=== PATIENT | female | born 1975 | race African-American/Black ===

== ENCOUNTER 2019-06-17 11:04 | Outpatient (CLI) | payer OTHER ==
[~2019-06-17 11:04] MED LIST: DICL1GEL2 TOP; HYDR25TA60 PO; LISI10TA11 PO
== END 2019-06-17 23:30 | disposition home or self-care (01) ==
LOC: MAMMO 11:04
DX: Z12.31 Encounter for screening mammogram for malignant neoplasm of breast (principal)

== ENCOUNTER 2020-02-04 09:26 | Emergency (ER) | payer OTHER ==
[~2020-02-04] VITALS: Ht 157.5 cm; Wt 90.7 kg
[2020-02-04 10:30] LABS: PLATELET COUNT 217 K/uL (152-353)
[2020-02-04 10:42] LABS: POTASSIUM 3.5 mmol/L (3.6-5.2)
[2020-02-04 11:31] VITALS: BP 126/68; TEMP 99.5
== END 2020-02-04 11:28 | disposition home or self-care (01) ==
LOC: ED 09:26
DX: J20.9 Acute bronchitis, unspecified (principal); U07.1 COVID-19
CPT/HCPCS: 36415; 80053; 83605; 83880; 85027; 87040; 87635; 96374; 99284; J2930; U0002

== ENCOUNTER 2021-11-08 12:09 | Outpatient (CLI) | payer OTHER ==
[2021-11-08 12:31] LABS: PLATELET COUNT 252 K/uL (152-353)
[2021-11-08 12:58] LABS: POTASSIUM 3.8 mmol/L (3.6-5.2)
== END 2021-11-08 19:03 | disposition home or self-care (01) ==
LOC: LABW 12:09
PROVIDERS: ATTEND Internal Medicine
DX: I10 Essential (primary) hypertension (principal); H53.8 Other visual disturbances; M19.90 Unspecified osteoarthritis, unspecified site; Z79.899 Other long term (current) drug therapy
CPT/HCPCS: 36415; 80053; 80061; 81000; 83036; 84439; 84443; 84550; 85027

== ENCOUNTER 2022-07-31 13:21 | Outpatient (CLI) | payer OTHER | END 2022-07-31 19:39 | disposition home or self-care (01) | LOC: RAD 13:21 | PROVIDERS: ATTEND Internal Medicine | DX: R76.12 Nonspecific reaction to cell mediated immunity measurement of gamma interferon antigen response without active tuberculosis (principal) ==